=== PATIENT | male | born 1940 | race Two or more races ===

== ENCOUNTER 2021-11-21 12:51 | Emergency (ER) | payer OTHER, MEDICAID ==
[~2021-11-21] VITALS: Ht 165.1 cm; Wt 72.6 kg
--- NOTE | 2021-11-21 13:06 | NUR ---
PT IS IN ROOM #2B. DR SIMONS EVALUATED THE PT.
[2021-11-21 13:18] LABS: HEMATOCRIT 41.2 % (36.7-47.1); MEAN CORPUSCULAR HEMOGLOBIN 31.6 uug (23.8-33.4); PLATELET COUNT (AUTO) 142 K/uL (152-348)
[2021-11-21 13:36] LABS: ALANINE AMINOTRANSFERASE 46 U/L (16-63); ALKALINE PHOSPHATASE 159 U/L (50-136); ASPARTATE AMINOTRANSFERASE 28 U/L (15-37); BILIRUBIN,TOTAL 0.8 mg/dL (0.2-1.0); CARBON DIOXIDE 27 mmol/L (21-32); CHLORIDE 97 mmol/L (98-107); CREATININE 0.9 mg/dL (0.6-1.3); LIPASE 49 U/L (73-393); POTASSIUM 4.1 mmol/L (3.5-5.1); TOTAL PROTEIN, SERUM 6.6 g/dL (6.4-8.2); UREA NITROGEN, BLOOD 17 mg/dL (7-18)
[2021-11-21 13:48] LABS: GLUCOSE 400 mg/dL (74-106)
[2021-11-21] MEDS ORDERED: GABA600T12 PO (13:58)
[2021-11-21 14:01] LABS: ABG BASE EXCESS -0.4 mmol/L; ABG HCO3 23.1 mmol/L; ABG PCO2 34.7 mmHg (35.0-45.0); ABG PH 7.441 (7.350-7.450); ABG PO2 71.9 mmHg (75.0-100.0); ABG SITE LEFT BRACHIAL; ABG TOTAL HEMOGLOBIN 14.9 G/dL (13.5-18.0); MetHb 0.1 % (0.0-1.5); VENT MODE ROOM AIR
[2021-11-21] MEDS ORDERED: CLOP75TA15 PO (14:02)
[2021-11-21] MEDS ORDERED: CHOL10005 PO (14:02)
[2021-11-21] MEDS ORDERED: ATOR40TA PO (14:02)
[2021-11-21] MEDS ORDERED: METO25TA6 PO (14:02)
[2021-11-21] MEDS ORDERED: APIX5TAB4 PO (14:02)
[2021-11-21] MEDS ORDERED: ASPI81TA31 PO (14:02)
[2021-11-21] MEDS ORDERED: DOCU100C36 PO (14:02)
[2021-11-21] MEDS ORDERED: LACT1CAP61 PO (14:02)
[2021-11-21] MEDS ORDERED: SENN-261 PO (14:02)
[2021-11-21] MEDS ORDERED: OMEP20CA15 PO (14:02)
[2021-11-21] MEDS ORDERED: INSU100V7 SQ (14:03)
[2021-11-21] MEDS ORDERED: INSULIN REGULAR, HUMAN 300 UNIT/3 ML VIAL SQ ONE (14:15)
[2021-11-21] MEDS ORDERED: IV NORMAL SALINE 1000 ML BAG IV ONE (14:15)
[2021-11-21] MEDS ORDERED: ACETAMINOPHEN 325 MG TABLET PO ONE (14:15)
[2021-11-21] MEDS ORDERED: ACETAMINOPHEN 325 MG TABLET ONE (14:16)
[2021-11-21] MEDS ORDERED: INSULIN REGULAR, HUMAN 300 UNIT/3 ML VIAL ONE (14:16)
[2021-11-21] MEDS ORDERED: ONDANSETRON 4 MG/2 ML VIAL IV PRN (15:30)
[2021-11-21] MEDS ORDERED: MORPHINE SULFATE 2 MG/1 ML DISP.SYRIN IV PRN (15:30)
[2021-11-21] MEDS ORDERED: hydrALAZINE HCL 20 MG/1 ML VIAL IV PRN (15:30)
[2021-11-21] MEDS ORDERED: INSULIN REGULAR, HUMAN 300 UNITS/3 ML VIAL SQ PRN (15:30)
[2021-11-21] MEDS ORDERED: ACETAMINOPHEN 325 MG TABLET PO PRN (15:30)
[2021-11-21] MEDS ORDERED: DEXTROSE 50% 50 ML DISP.SYRIN IV PRN (15:30)
[2021-11-21] MEDS ORDERED: INSULIN REGULAR, HUMAN 300 UNIT/3 ML VIAL SQ PRN (15:30)
--- NOTE | 2021-11-21 15:35 | NUR ---
REPORT WAS GIVEN TO KAY M/S. PT WAS TRANSFERED TO M/S ROOM #304.
--- NOTE | 2021-11-21 16:02 | NUR ---
PT's ADMISSION WAS CANCELLED BY DR SIMONS.
[2021-11-21] MEDS ORDERED: BLOOD SUGAR DIAGNOSTIC 1 EACH STRIP VI SCH (16:30)
--- NOTE | 2021-11-21 16:55 | NUR ---
DR SIMONS TALKED TO PT's PRIMARY MD, TO PT's WEB APPLICATIONS DEVELOPER AND TO PT's RELATIVES ABOUT PT's ADMISSION. PT WILL BE D/C'd HOME UNDER CARE OF HIS PRIMARY MD. PT's WEB APPLICATIONS DEVELOPER MEÑO ([phone]) ARRANGED HOME TRANSPORTATION BY [facility] ([phone]), TRIP NUMBER #[id number]. ETA IS 2 HRS. PT IS RESTING IN BED COMFORTABLY. NO S/S OF ACUTE DISTRESS AT THIS TIME. CONTINUE TO MONITOR THE PT.
[2021-11-21] MEDS ORDERED: DOCUSATE SODIUM 100 MG CAPSULE PO SCH (17:00)
[2021-11-21] MEDS ORDERED: Medication Not On Formulary EA (Apixaban (Eliquis) 5 MG) PO SCH (17:00)
[2021-11-21] MEDS ORDERED: INSULIN GLARGINE,HUM 300 UNITS/3 ML CARTRIDGE SQ SCH (17:00)
[2021-11-21] MEDS ORDERED: METOPROLOL TARTRATE 25 MG TABLET PO SCH (17:00)
[2021-11-21] MEDS ORDERED: ATORVASTATIN 40 MG TABLET PO SCH (18:00)
--- NOTE | 2021-11-21 19:34 | NUR ---
[facility] [address] AT BEDSIDE.
[2021-11-21 19:52] VITALS: BP 109/64
--- NOTE | 2021-11-21 19:52 | NUR ---
Patient discharged to home in stable condition. Written and verbal after care instructions given. Patient verbalizes understanding of instructions. Stressed follow up or return to ER for worsening s/s. Picked up by [facility]. Denies any pain/discomfort upon discharge. No changes in LOC. Stable.
[2021-11-22] MEDS ORDERED: CLOPIDOGREL 75 MG TABLET PO SCH (09:00)
[2021-11-22] MEDS ORDERED: Medication Not On Formulary EA (Omeprazole 1 CAP) PO SCH (09:00)
[2021-11-22] MEDS ORDERED: ASPIRIN 81 MG TAB.CHEW PO SCH (09:00)
[2021-11-22] MEDS ORDERED: Medication Not On Formulary EA (Cholecalciferol (Vitamin D3) (Vitamin D3) 1 CAP) PO SCH (09:00)
== END 2021-11-21 19:53 | disposition home or self-care (01) ==
LOC: ER 12:51
DX: E11.65 Type 2 diabetes mellitus with hyperglycemia (principal); Z79.4 Long term (current) use of insulin; R51.9 Headache, unspecified; R11.0 Nausea; Z89.511 Acquired absence of right leg below knee; Z89.612 Acquired absence of left leg above knee; E78.5 Hyperlipidemia, unspecified; I25.10 Atherosclerotic heart disease of native coronary artery without angina pectoris; Z95.5 Presence of coronary angioplasty implant and graft; Z79.01 Long term (current) use of anticoagulants; Z79.02 Long term (current) use of antithrombotics/antiplatelets; E87.1 Hypo-osmolality and hyponatremia; Z20.822 Contact with and (suspected) exposure to COVID-19; J32.8 Other chronic sinusitis; I10 Essential (primary) hypertension; R10.9 Unspecified abdominal pain
CPT/HCPCS: 36600; 70450; 71045; 80053; 82009; 82962 ×3; 83036; 83690; 85025; 87426; 93005; 96360; 96372; 99285; J1815; J7040; A4663